=== PATIENT | male | born 1990 | race African-American/Black ===

== ENCOUNTER 2017-08-10 12:45 | Emergency (ER) | payer OTHER ==
[~2017-08-10] VITALS: Ht 180.3 cm; Wt 95.3 kg
[~2017-08-10 12:45] MED LIST: IBUPROFEN 600600 M1 PO; NORCO 5-325 TA1 EACH PO
[2017-08-10] MEDS ORDERED: DOXYCYCLINE 10100 MG PO (15:45)
[2017-08-10] MEDS ORDERED: NAPROSYN500 MG PO (15:45)
[2017-08-10 16:28] VITALS: BP 128/71
== END 2017-08-10 16:29 | disposition home or self-care (01) ==
LOC: ER 12:45
DX: L05.91 Pilonidal cyst without abscess (principal); I10 Essential (primary) hypertension